=== PATIENT | female | born 1990 | race Caucasian/White ===

== ENCOUNTER → 2020-09-20 | Outpatient (CLI) | payer MEDICAID ==
[~2020-09-20] MED LIST: BSP5T; CATHETER FLUSH 10 ML SYR IV PRN; HOLD METFORMIN - RECEIVED CONTRAST 20 ML VIAL IV SCH; IOHEXOL 350 MG/ML 100 ML (OMNIPAQUE 350) VIAL IV ONE; NS 100 ML (IVPB) BAG IV ONE
--- NOTE | 2020-09-20 15:25 | Diagnostic Imaging Report ---
EXAMINATION: CT abdomen/pelvis w. TECHNIQUE: Multiple contiguous axial images were obtained through the abdomen and pelvis after administration of intravenous contrast. All CT scans use one or more of the following dose optimizing techniques: automated exposure control, MA and/or KvP adjustment based on a patient size and exam type, or iterative reconstruction. INDICATION: Right lower quadrant pain. COMPARISON: None available. FINDINGS: Lower chest: The lung bases are clear. No pericardial or pleural effusion. Peritoneum: No free intraperitoneal air or fluid. Liver and biliary system: Simple cyst in the posterior right hepatic lobe measures 1.0 x 1.0 cm. No concerning hepatic lesion. The gallbladder is normal. No biliary duct dilation. Spleen and Pancreas: Spleen is normal. The pancreas enhances normally without mass lesion or peripancreatic inflammatory changes. Adrenals: Normal. tract: The kidneys enhance normally without suspicious mass or obstruction. Urinary bladder is distended without wall thickening. Uterus is normal in appearance. Right ovarian cyst/follicle measures 1.5 x 1.6 cm. GI tract: Stomach is decompressed. No bowel obstruction. No pericolonic inflammatory changes. Terminal ileum is normal. The proximal appendix is mildly dilated measuring 9 mm and has some hyperenhancement of the mucosa and a small amount of periappendiceal fat stranding (best seen on coronal image 24, series 601). The distal aspect of the appendix is normal in diameter measuring 5 mm. Vasculature and Lymph nodes: Normal caliber aorta. No abdominal or pelvic lymphadenopathy. Musculoskeletal: No concerning osseous lesion. IMPRESSION: 1. The proximal aspect of the appendix is mildly dilated with a small amount of surrounding inflammation suggestive of mild acute appendicitis. No perforation or abscess. Dictated by: Dictated on workstation # [id number]
== END ==
LOC: RAD 14:45
PROVIDERS: ATTEND Nurse Practitioner Family
DX: K38.8 Other specified diseases of appendix (principal)
CPT/HCPCS: 74177